=== PATIENT | male | born 1950 | race Asian ===

== ENCOUNTER 2020-10-20 18:47 | Emergency (ER) | payer MEDICARE, BC ==
[2020-10-20] MEDS ORDERED: Sodium Chloride 0.9% 10 ML Syringe FLUSH PRN (19:36)
[2020-10-20] MEDS ORDERED: Sodium Chloride 0.9% 1,000 ML IV SCH (20:15)
--- NOTE | 2020-10-20 20:31 | EDM.PDOC ---
ED HPI GENERAL MEDICAL PROBLEM - General Chief Complaint: Respiratory Problem Stated Complaint: SOB COUGH LASHANDA ROJAS CALLED IN Time Seen by Provider: 10/20/20 19:18 Source of Information: Reports: Patient, Provider, RN Notes Reviewed - History of Present Illness INITIAL COMMENTS - FREE TEXT/NARRATIVE: Bob has sent patient over from the clinic for further eval of what looks like pneumonia on CXR done at clinic. He is reported to have had covid infection about 6 weeks ago. He reports that he has been short of breath this past week or so with exertion. Occasional cough. No recent fever or chills. No current or recent chest pain. Hx of type 2 diabetes on metformin. He speaks fairly good Frisian but not able to get a good understanding from him as to how ill he might have been back in August 6 to 7 wks ago. - Related Data Allergies Allergy/AdvReac Type Severity Reaction Status Date / Time No Known Allergies Allergy Verified 10/20/20 19:13 Home Meds: Home Meds . [Unable to Verify Home Med List] 10/20/20 [History] Past Medical History Cardiovascular History: Reports: High Cholesterol Social & Family History - Tobacco Use Tobacco Use Status *Q: Never Tobacco User - Caffeine Use Caffeine Use: Reports: Coffee, Tea - Recreational Drug Use Recreational Drug Use: No ED ROS GENERAL - Review of Systems Review Of Systems: See Below Constitutional: Reports: Other (no recent fever or chills). Denies: Fever, Chills HEENT: Reports: No Symptoms Respiratory: Reports: Shortness of Breath (primarily with exertion) Cardiovascular: Denies: Chest Pain Endocrine: Reports: Fatigue GI/Abdominal: Denies: Abdominal Pain, Nausea, Vomiting Musculoskeletal: Reports: No Symptoms Skin: Reports: No Symptoms Neurological: Reports: No Symptoms ED EXAM, GENERAL - Physical Exam Exam: See Below General Appearance: Alert, No Apparent Distress (at rest) Eye Exam: Bilateral Eye: PERRL Head: Atraumatic. No: Facial Swelling Neck: Supple Respiratory/Chest: No Respiratory Distress, Lungs Clear, Normal Breath Sounds, No Accessory Muscle Use. No: Rales, Rhonchi, Wheezing Cardiovascular: Tachycardia GI/Abdominal: Soft, Non-Tender Extremities: No: Pedal Edema, Leg Pain, Increased Warmth, Redness Neurological: Alert, Oriented, No Motor/Sensory Deficits Skin Exam: Warm, Dry, Normal Color, No Rash Course - Vital Signs Last Recorded V/S: Last Vital Signs Temp 97.6 F 10/20/20 19:07 Pulse 105 H 10/20/20 22:30 Resp 16 10/20/20 22:30 BP 130/86 10/20/20 22:30 Pulse Ox 97 10/20/20 22:30 - Orders/Labs/Meds Orders: Active Orders 24 hr Category Date Time Status Ang Chest [CT] Stat Exams 10/20/20 19:37 Taken Chest 1V Frontal [CR] Stat Exams 10/20/20 19:35 Taken Peripheral IV Insertion Adult [OM.PC] Stat Oth 10/20/20 19:36 Ordered Labs: Laboratory Tests 10/20/20 10/20/20 10/20/20 Range/Units 19:40 19:55 19:55 Sodium 139 (136-145) mEq/L Potassium 4.4 (3.5-5.1) mEq/L Chloride 102 (98-107) mEq/L Carbon Dioxide 28 (21-32) mEq/L Anion Gap 13.4 (5-15) BUN 15 (7-18) mg/dL Creatinine 1.1 (0.7-1.3) mg/dL Est Cr Clr Drug Dosing 58.42 mL/min Estimated GFR (MDRD) > 60 (>60) mL/min BUN/Creatinine Ratio 13.6 L (14-18) Glucose 206 H (80-115) mg/dL Calcium 9.1 (8.5-10.1) mg/dL Total Bilirubin 0.5 (0.2-1.0) mg/dL AST 14 L (15-37) U/L ALT 22 (16-63) U/L Alkaline Phosphatase 76 (46-116) U/L Troponin I < 0.017 (0.00-0.056) ng/mL C-Reactive Protein 0.9 (<1.0) mg/dL NT-Pro-B Natriuret Pep 102 (0-125) pg/mL Total Protein 7.4 (6.4-8.2) g/dl Albumin 3.8 (3.4-5.0) g/dl Globulin 3.6 gm/dL Albumin/Globulin Ratio 1.1 (1-2) Meds: Medications Discontinued Medications Generic Name Dose Route Start Last Admin Trade Name Freq PRN Reason Stop Dose Admin Sodium Chloride 1,000 mls @ 999 mls/hr 10/20/20 20:15 10/20/20 20:56 Normal Saline IV 150 mls/hr ONETIME LESLEY Infusion Sodium Chloride 100 mls @ 60 mls/min 10/20/20 20:41 Normal Saline IV 10/20/20 20:42 NOW STA Iopamidol 100 ml 10/20/20 20:41 Isovue-370 (76%) IVPUSH 10/20/20 20:42 ONETIME ONE Sodium Chloride 10 ml 10/20/20 19:36 10/20/20 20:00 Saline Flush FLUSH 10 ml ASDIRECTED PRN Administration Keep Vein Open Sodium Chloride 10 ml 10/20/20 20:41 Saline Flush FLUSH 10/20/20 20:42 NOW STA - Re-Assessments/Exams Free Text/Narrative Re-Assessment/Exam: 10/20/20 23:25 CXR did show bilat patchy lower lobe infiltrates. CT Chest show interstitial and ground glass opacities both lungs, most prominent lung bases. WBC done at the clinic was 6,700. D Dimer is reported to have been 0.8. Creat. 1.1, glucose 206, CRP 0.9, BNP 102, trop neg. Was able to visit with his after CT was done. She sates he was in the [facility] for 8 days with "low oxygen". "Not sure if he would survive when he went in so must have been quite ill. He does not appear to have acute bacterial illness. Do not know what his lungs looked like a month ago or 6 weeks ago but supect he is now much improved, that this is still residual from his covid pneumonia of 6to 7 wks ago. His sats are running 94 to 95 while here in the ED. As noted his inflamatory markers checked today are now quite negative. Discharge instr. as documented. Departure - Departure Time of Disposition: 22:21 Disposition: Home, Self-Care 01 Condition: Fair Clinical Impression: Pneumonia due to COVID-19 virus - Discharge Information Instructions: COVID-19, Community-Acquired Pneumonia, Adult, [id number] Referrals: Wilbur Rojas MD [Primary Care Provider] - Forms: ED Department Discharge Additional Instructions: Your Chest Xrays and CT scan of your lungs do still show some pneumonia in your lower lung [place]. This appears viral, apparently residual pneumonia and inflamation from your covid pneumonia 6 to 7 weeks ago. Your shortness of breath with exertion will gradually get better. See Dr Rojas this coming or Tuesday for recheck, call for appointment. Return to ED [place] or here in [place] if breathing or other symptoms worsen in any significant way. Sepsis Event Note (ED) - Evaluation Sepsis Screening Result: No Definite Risk - Focused Exam Vital Signs: Vital Signs Temp Pulse Resp BP Pulse Ox 10/20/20 22:30 105 H 16 130/86 97 10/20/20 20:59 109 H 18 135/89 97 10/20/20 19:07 97.6 F 115 H 20 137/99 H 95 - My Orders Last 24 Hours: My Active Orders 10/20/20 19:35 Chest 1V Frontal [CR] Stat 10/20/20 19:36 Peripheral IV Insertion Adult [OM.PC] Stat 10/20/20 19:37 Ang Chest [CT] Stat - Assessment/Plan Last 24 Hours: My Active Orders 10/20/20 19:35 Chest 1V Frontal [CR] Stat 10/20/20 19:36 Peripheral IV Insertion Adult [OM.PC] Stat 10/20/20 19:37 Ang Chest [CT] Stat
[2020-10-20] MEDS ORDERED: Sodium Chloride 0.9% 10 ML Syringe FLUSH STA (20:41)
[2020-10-20] MEDS ORDERED: Sodium Chloride 0.9% 100 ML IV STA (20:41)
[2020-10-20] MEDS ORDERED: Iopamidol 755 Mg/ML 100 ML Bottle IVPUSH ONE (20:41)
--- NOTE | 2020-10-21 09:12 | CR ---
PROCEDURE INFORMATION: Exam: XR Chest, 1 View Exam date and time: 10/20/2020 7:22 PM Age: 69 years old Clinical indication: Cough and dyspnea TECHNIQUE: Imaging protocol: XR of the chest Views: 1 view. COMPARISON: No relevant prior studies available. FINDINGS: Lungs: Multifocal patchy infiltrates in both lungs, left greater than right. Pleural space: Unremarkable. No pleural effusion. No pneumothorax. Heart/Mediastinum: Unremarkable. No cardiomegaly. Bones/joints: Unremarkable. IMPRESSION: Multifocal infiltrates Thank you for allowing us to participate in the care of your patient. Dictated and Authenticated by: Hang Solis MD 10/20/2020 8:55 PM Central Time ([place] & [place]) JOE
--- NOTE | 2020-10-21 09:13 | CT ---
PROCEDURE INFORMATION: Exam: CT Angiography Chest With Contrast Exam date and time: 10/20/2020 7:59 PM Age: 69 years old Clinical indication: Cough and dyspnea and other: HX of covid 6 weeks ago d dimer 0.8 TECHNIQUE: Imaging protocol: Computed tomographic angiography of the chest with intravenous contrast. 3D rendering (Not supervised by radiologist): MIP and/or 3D reconstructed images were created by the technologist. Radiation optimization: All CT scans at this facility use at least one of these dose optimization techniques: automated exposure control; mA and/or kV adjustment per patient size (includes targeted exams where dose is matched to clinical indication); or iterative reconstruction. Contrast material: ISOVUE 370; Contrast volume: 100 ml; Contrast route: INTRAVENOUS (IV); COMPARISON: CR Chest 1V Frontal 10/20/2020 7:22 PM FINDINGS: Pulmonary arteries: Normal. No pulmonary emboli. Aorta: Unremarkable. No aortic aneurysm. No aortic dissection. Lungs: There is a moderate amount of predominantly peripheral ground-glass and interstitial opacities throughout both lungs, most prominent in lung bases.. Pleural space: Unremarkable. No pneumothorax. No pleural effusion. Heart: Unremarkable. No cardiomegaly. No pericardial effusion. Lymph nodes: Unremarkable. No enlarged lymph nodes. Bones/joints: Unremarkable. No acute fracture. Soft tissues: Unremarkable. IMPRESSION: Interstitial and ground-glass opacities throughout both lungs. Atypical viral pneumonia could be considered in the appropriate clinical setting. Thank you for allowing us to participate in the care of your patient. Dictated and Authenticated by: Hang Solis MD 10/20/2020 10:14 PM Central Time ([place] & [place]) JOE
== END 2020-10-20 22:30 | disposition home or self-care (01) ==
LOC: JD.ED 18:47
DX: U07.1 COVID-19 (principal); J12.89 Other viral pneumonia
CPT/HCPCS: 36415; 71045; 71275; 80053; 83880; 84484; 86140; 93005; 99285; J7030; 93010; 99283